=== PATIENT | female | born 1970 | race Hispanic/Latino ===

== ENCOUNTER 2020-09-04 11:48 | Inpatient (IN) | payer OTHER ==
[~2020-09-04 11:48] MED LIST: Dexamethasone 20 MG/5 ML VIAL ONE; Glycopyrrolate 0.2 MG/ML 5 ML SYRINGE ONE; Lidocaine 1% PF 5 ML VIAL ONE; Ondansetron PF 4 MG/2 ML Vial ONE; PHENYLEPHRINE-NS 100 MCG/ML 10 ML SYRINGE ONE; PROPOFOL 200 MG/20 ML VIAL ONE; Rocuronium Bromide 10 MG/ML (10ML VIAL) ONE; ePHEDrine 50 MG/ML VIAL ONE
[2020-09-04 12:41] LABS: #Eosinphils 0.2 thou/uL (0.0-0.7); #Lymphocytes 1.6 thou/uL (1.20-3.40); #Monocytes 0.8 thou/uL (0.11-0.59); #Neutrophils 4.4 thou/uL (1.40-6.50); %Basophils 0.2 % (0.0-1.0); %Eosinophils 2.3 % (0.0-10.0); %Lymphocytes 22.4 % (21.0-51.0); %Monocytes 12.1 % (0.0-10.0); %Neutrophils 62.9 % (42.0-75.0); Hemoglobin 9.5 g/dL (12.0-16.0); Mean Corpuscular HGB CONC 32.3 g/dL (32.0-36.0); Mean Corpuscular Hemoglobin 26.2 pg (27.0-31.0); Mean Corpuscular Volume 80.9 fL (78.0-98.0); Mean Platelet Volume 9.5 fL (7.4-10.4); Platelet Count 329 thou/uL (130-400); Red Blood Cell (RBC) Count 3.63 mill/uL (4.20-5.40)
[2020-09-04 13:06] LABS: ALT (SGPT) 103 U/L (8-55); AST (SGOT) 63 U/L (5-34); Alkaline Phosphatase 390 U/L (40-110); Anion Gap 11 mmol/L (10-20); BUN (Urea Nitrogen) 12 mg/dL (7.0-18.7); Calc. Creatinine Clearance 0 mL/min (70-130); Calcium 8.6 mg/dL (7.8-10.44); Carbon Dioxide 26 mmol/L (22-29); Chloride 103 mmol/L (98-107); Globulin 4.7 g/dL (2.4-3.5); Glucose 91 mg/dL (70-105); Lipase 372 U/L (8-78); Magnesium 1.8 mg/dL (1.6-2.6); Potassium 3.3 mmol/L (3.5-5.1); Protein, Total 7.7 g/dL (6.0-8.3); Sodium 137 mmol/L (136-145)
--- NOTE | 2020-09-04 13:22 | ULT ---
ULTRASOUND ABDOMEN LIMITED: (RIGHT UPPER QUADRANT) DATE: 09/04/2020 HISTORY: 50-year-old female with right upper quadrant abdominal pain and jaundice FINDINGS: Gallbladder: Several mobile gallstones. Gallbladder wall thickness up to 10 mm. Hypoechoic stripe wit hin wall consistent with edema. Common duct: 4 mm. Liver:Normal echogenicity Pancreas:Nonspecific sonographic appearance tail obscured. Right kidney:No hydronephrosis IMPRESSION: 1) positive for cholelithiasis. 2) gallbladder mural thickening with apparent mural edema: Suspicious for acute cholecystitis.
[2020-09-04 13:52] LABS: Bilirubin Negative (Negative); Blood, Urine Negative (Negative); Clarity Clear (Clear); Glucose, Urine (Dipstick) Normal (Negative); Ketone, Urine Negative (Negative); Leukocyte Negative Leu/uL (Negative); Nitrite Negative (Negative); Protein, Urine (Dipstick) Negative (Neg-Trace); Specific Gravity, Urine 1.013 (1.002-1.036)
[2020-09-04] MEDS ORDERED: Piperacillin/Tazobactam 3.375 GM VIAL ONE ×2 (14:39→22:30)
--- NOTE | 2020-09-04 15:19 | HP ---
HISTORY OF PRESENT ILLNESS: Ms. Shrestha is a 50-year-old woman. She is a G4, P4, an inmate of a correctional facility. The patient presented to the emergency department today reporting insidious onset postprandial abdominal pain since 08/17/2020. The pain started late afternoon following lunch consisting of fried chicken. The pain had worsened intermittently following eating and associated with occasional nausea. The patient subsequently developed jaundice and scleral icterus. Laboratory studies were performed on 08/31/2020, which was significant for elevated total bilirubin, AST, ALT, and alkaline phosphatase. The patient was referred to the emergency department today. Workup had included abdominal ultrasound, which was remarkable for intraluminal gallstones and gallbladder wall thickening. At the time of my evaluation, the patient reports 5/10 epigastric abdominal pain. The patient has been afraid of eating for a fear of exacerbating abdominal pain. Her last meal was yesterday. PAST MEDICAL HISTORY: Pertinent for essential hypertension, hypothyroidism, and chronic anemia. PAST SURGICAL HISTORY: Pertinent for laparoscopic tubal ligation. SOCIAL HISTORY: She is currently an inmate of a correctional facility. She denies any cigarette smoking, ethanol, or illicit drug abuse. FAMILY HISTORY: Notable for father with essential hypertension and diabetes mellitus. She denies any family history of heart disease or cancer. CURRENT MEDICATIONS: Includes antihypertensives, thyroid replacement therapy, and iron replacement therapy, recently started. She is unsure of specifics. ALLERGIES: TO SULFA DRUGS. REVIEW OF SYSTEMS: Ten-point review of systems is essentially unremarkable except as stated in past medical history and chief complaint. PHYSICAL EXAMINATION: GENERAL: This reveals a 50-year-old obese woman, who is otherwise coherent interactive and appears stated age. The patient is alert and oriented x3. She appears to be in no acute distress at the time of my evaluation. HEENT: Pupils are equal, round, and reactive to light and accommodation. She has mild bilateral scleral icterus present. HEART: Reveals regular rate and rhythm. No murmurs or gallops auscultated. LUNGS: Clear to auscultation bilaterally. Her breathing, regular and nonlabored. ABDOMEN: Soft with epigastric right upper quadrant tenderness to palpation. Liver and spleen are otherwise nonpalpable below costal margins. She clearly has no peritoneal signs on examination. NEUROLOGIC: Reveals no focal deficits present. LABORATORY FINDINGS: Today include a CBC with 7000 white blood cells, hemoglobin and hematocrit are 9.5 and 29.4 respectively. The platelet count is 329,000. Metabolic profile; sodium 137, potassium 3.3, chloride is 103, bicarb is 26, BUN 12, creatinine 0.86, glucose is 91, magnesium is 1.8, total bilirubin is 3.0, AST and ALT are 63 and 103 respectively. Alkaline phosphatase is 390. Serum lipase is also elevated at 372. Note that the LFTs are trending down when compared to the labs obtained on 08/31/2020. I have personally reviewed the abdominal ultrasound, which was obtained today, which reveals multiple intraluminal gallstones. There is gallbladder wall thickening and mild pericholecystic fluid in the distended gallbladder. Common bile duct is normal in diameter for this patient's age at 4 mm in diameter. IMPRESSIONS: 1. Acute cholecystitis with cholelithiasis. 2. Possible choledocholithiasis. 3. Mild gallstone pancreatitis, likely resolving given the patient's history. RECOMMENDATIONS AND PLAN: Laparoscopic cholecystectomy with intraoperative cholangiogram. I have discussed the above findings and recommendations with the patient in the presence of the guard as well as the patient's nurse at bedside. I have informed the patient of the risks and benefits of the proposed surgery to include, but not limited to, bleeding, infection, injury to bile duct or surrounding structures. I additionally informed the patient that should there be any filling defects on intraoperative cholangiogram, the patient will require ERCP with common bile duct stone extraction, which would be another procedure by Gastroenterology at that time. The patient has indicated understanding of information I provided her today. I have answered her questions. The patient has granted consent for this admission and surgical intervention. Job ID: [id number]
[2020-09-04 15:31] LABS: SARS-CoV-2 NAA Rapid Test Not Detected (NotDetected)
[2020-09-04] MEDS ORDERED: XYLOCAINE 2%-EPI 1:100,000 20 ML VIAL ONE (15:52)
[2020-09-04] MEDS ORDERED: Iothalamate Meglumine 60% 50 ML VIAL FS ONE (15:52)
[2020-09-04] MEDS ORDERED: Bupivacaine 0.25% HCL 30 ML VIAL ONE (15:52)
[2020-09-04] MEDS ORDERED: Fentanyl 100 MCG/2 ML VIAL ONE ×4 (15:59→20:31)
[2020-09-04] MEDS ORDERED: PHENYLEPHRINE-NS 100 MCG/ML 10 ML SYRINGE ONE (18:21)
--- NOTE | 2020-09-04 18:27 | RAD ---
EXAM: XR Cholangiogram in Surgery PROVIDED CLINICAL HISTORY: Cholelithiasis COMPARISON: None FINDINGS/IMPRESSION: 3 intraoperative fluoroscopic images from an intraoperative cholangiogram are submitted for interpret ation. The cystic duct is cannulated. There is a filling defect seen within the proximal common duct which could represent air bubble or possibly secondary to calculus within the common duct. There is evidence of free spill of contrast into the duodenum. Correlation with intraoperative findings is recommended. Fluoroscopy: Time-35 seconds Dose-1.93 Gy centimeter squared
[2020-09-04] MEDS ORDERED: Calcium Carbonate 500 MG ChewTAB PO PRN (19:41)
[2020-09-04] MEDS ORDERED: hydrALAZINE 20 MG/ML VIAL SLOW IVP PRN (19:41)
[2020-09-04] MEDS ORDERED: Dextrose 50% Abboject 50 ML SYRINGE SLOW IVP PRN (19:41)
[2020-09-04] MEDS ORDERED: Mag-Al 1200 mg/1200 mg/30 ML UDCUP PO PRN (19:41)
[2020-09-04] MEDS ORDERED: Dextrose 5% in Water 1,000 ML IV PRN (19:41)
[2020-09-04] MEDS ORDERED: Ondansetron PF 4 MG/2 ML Vial IVP PRN (19:41)
[2020-09-04] MEDS ORDERED: Promethazine HCl 25 MG/ML VIAL IM PRN ×2 (19:41→19:45)
[2020-09-04] MEDS ORDERED: Morphine 4 MG/ML VIAL SLOW IVP PRN (19:41)
[2020-09-04] MEDS ORDERED: traMADol HCl 50 MG TAB PO PRN ×2 (19:45)
[2020-09-04] MEDS ORDERED: HYDROmorphone 2 MG/ML VIAL SLOW IVP PRN (19:45)
[2020-09-04] MEDS ORDERED: Morphine Sulfate 2 MG/ML SYRINGE SLOW IVP PRN (19:45)
[2020-09-04] MEDS ORDERED: Promethazine HCl 25 MG/ML VIAL SLOW IVP PRN (19:45)
[2020-09-04] MEDS ORDERED: Ondansetron HCl/PF 4 MG/2 ML Vial IVP PRN (19:45)
--- NOTE | 2020-09-04 20:41 | CON ---
DATE OF CONSULTATION: 09/04/2020 CHIEF COMPLAINT: Abdominal pain. HISTORY OF PRESENT ILLNESS: Ms. Shrestha is a 50-year-old woman who had onset of epigastric sharp pain on 08/17/2020. The pain persisted over the next couple of weeks and actually over the last couple of days has improved somewhat. She had blood work drawn at the longterm that showed elevated bilirubin and liver tests and on review of those today she was sent over to the hospital for further care. She had nausea and vomiting on the day that her pain started, but this has not been persistent. She has had no diarrhea, constipation, or visible blood in the stool. She has lost maybe 10 pounds over the last couple of weeks. She has had no fever or chills. She has never had similar pain in the past. Her pain does not radiate. It remains localized in the upper epigastric region. PAST MEDICAL HISTORY: Hypertension, hypothyroidism, and anemia. PAST SURGICAL HISTORY: Tubal ligation. FAMILY HISTORY: Negative for GI malignancy. SOCIAL HISTORY: No alcohol, tobacco, or drugs. She is currently at the [facility] in [place]. ALLERGIES: SULFA. MEDICATIONS: Currently include; 1. Blood pressure medicine. 2. Thyroid medication. REVIEW OF SYSTEMS: Negative x10 systems reviewed except as stated in the History of Present Illness. PHYSICAL EXAMINATION: VITAL SIGNS: Blood pressure 151/87, pulse is 55. She is afebrile. GENERAL: She is in no acute distress. Alert and oriented x3. HEENT: Eyes have no scleral icterus. Oropharynx is clear without lesions. No cervical or supraclavicular lymphadenopathy. LUNGS: Clear to auscultation bilaterally. HEART: Regular rate and rhythm without murmur. ABDOMEN: Soft. No significant tenderness currently. Her bowel sounds are present. No hepatomegaly. EXTREMITIES: No lower extremity edema. Cranial nerves are grossly intact. LABORATORY DATA: White blood cell count 7.0, hemoglobin 9.5, MCV 80.9, platelets 329, creatinine 0.86, bilirubin 3.0 which is reportedly down from 5 at the longterm. AST 63, ALT 103, alkaline phosphatase 390, albumin 3.0, lipase is 372 with an upper limit of normal, at this lab it is 78. COVID screen is negative. IMPRESSION: 1. Cholecystitis with ultrasound showing gallbladder wall thickening and gallstones. 2. Gallstone pancreatitis. Her lipase is greater than 3 times upper limit of normal. Clinically, she is doing actually better over the last couple of days. 3. Abnormal liver function tests. She has primarily cholestatic pattern with mixed cholestatic and hepatocellular injury pattern to her LFTs. I suspect she likely still has a stone in her bile duct, but she might have passed the stone out. Given that her pain is greatly improved, her bilirubin is trending down, plan will be to proceed with surgery prior to ERCP. 4. Anemia. She is on the more microcytic end of normal. She has a history of anemia ever since she delivered her last baby 15 years ago. I will check iron studies. I have encouraged her to undergo EGD and colonoscopy in the future. This is not an emergent test but should be performed if she is confirmed to have iron deficiency. Still, I would favor menstrual blood loss is her likely etiology. RECOMMENDATIONS: 1. She has been evaluated by General surgery, Dr. Hernadez. She will undergo laparoscopic cholecystectomy with intraoperative cholangiogram. 2. If the intraoperative cholangiogram is positive, then I will follow with ERCP. 3. I would recommend follow up in GI Clinic for further assessment of her anemia. Job ID: [id number]
[2020-09-04 21:20] LABS: Iron 20 ug/dL (50-170); Iron Binding Capacity, Total 308 mcg/dL (265-497)
[2020-09-04 21:54] VITALS: BMI 38.9
[2020-09-04] MEDS: Enoxaparin Sodium 40 MG/0.4 ML SYRINGE SC SCH (22:15)
[2020-09-04] MEDS: Famotidine/PF 20 mg/2ml Vial SLOW IVP SCH (22:16)
[2020-09-04] MEDS: Famotidine 20 MG TAB PO SCH (22:16)
[2020-09-04] MEDS: Lactated Ringer's 1,000 ML IV SCH (22:16)
[2020-09-04] MEDS: Piperacillin/Tazobactam 3.375 GM in Sodium Chloride 0.9% 100 ML IVPB SCH (22:17)
[2020-09-04] MEDS: Ketorolac Tromethamine 30 MG/ML VIAL IVP SCH (22:20)
--- NOTE | 2020-09-04 23:54 | OP ---
DATE OF PROCEDURE: 09/04/2020 PREOPERATIVE DIAGNOSES: Acute cholecystitis, cholelithiasis, and choledocholithiasis. POSTOPERATIVE DIAGNOSES: Acute cholecystitis, cholelithiasis, and choledocholithiasis. PROCEDURE PERFORMED: Laparoscopic cholecystectomy with intraoperative cholangiogram. ANESTHESIA: General endotracheal. ESTIMATED BLOOD LOSS: 50 mL. FLUIDS GIVEN: 2000 mL crystalloids. TOTAL FLUOROSCOPY TIME: 35 seconds using 30 mL of Conray contrast. INDICATIONS FOR OPERATION: A 50-year-old morbidly obese woman, presented with recurrent epigastric right upper quadrant abdominal pain since 08/17/2020. Clinical and radiographic examination were consistent with acute cholecystitis with cholelithiasis and mildly elevated serum lipase. Diagnosis of acute cholecystitis, cholelithiasis with choledocholithiasis was made in addition to resolving acute gallstone pancreatitis. Abdominal pain was resolving, although the LFTs and serum lipase remained elevated. Decision was made to bring the patient to the operating room for laparoscopic cholecystectomy with intraoperative cholangiogram. Findings are consistent with markedly distended and thick-walled gallbladder in the usual anatomic location completely encased by omental adhesions. Cholangiogram also revealed multiple common bile duct filling defects. DESCRIPTION OF PROCEDURE: Informed consent was obtained from the patient who was brought to the operating room and placed in supine position. Following general anesthesia, abdomen was sterilely prepped and draped in usual fashion. Skin below the umbilicus was infiltrated with 0.25% Marcaine with epinephrine. A small curvilinear infraumbilical incision was made using 11 scalpel. Umbilical stalk was grasped with Shaunna and elevated. Veress needle was then inserted through the incision and placed in peritoneal cavity through which the abdomen was insufflated with 3 L of CO2 gas. Intraabdominal pressure noted at 3 mmHg. Following abdominal insufflation, Veress needle was removed and a 5 mm trocar introduced using a Visiport under laparoscopy. Laparoscopy confirmed proper placement of the port. No injuries to underlying structures. Additional laparoscopy reveals the right upper quadrant completely encased by omental adhesions. Under direct laparoscopy, a 10 mm epigastric and two 5 mm right lateral subcostal ports were placed after the overlying skin were infiltrated with 0.25% Marcaine with epinephrine, appropriate incision was made. The patient was placed in a reverse Trendelenburg position, rotated to her left. I introduced a [place] dissector through the epigastric port site using cautery to take down omental adhesions to reveal the fundus of the markedly distended gallbladder. I attempted to grasp the fundus of the gallbladder using a Prestige grasper through the right lateral subcostal port. It was markedly thick-walled and taut. Decision was made therefore to decompress the gallbladder. To achieve this, I used the Endo suction catheter with cautery to perform a cholecystotomy at the dome of the gallbladder, evacuating excess bile. Prestige grasper was then applied to the fundus, which was elevated cephalad. Omental adhesions were then bluntly taken down from remainder of the gallbladder. Bleeding points controlled using cautery. A second Prestige grasper introduced through the right medial subcostal port grasping the Brianan's pouch which was retracted laterally. I then used a [place] dissector to open the peritoneum of the gallbladder infundibulum and the cystic duct and artery were individually dissected free from surrounding structures tediously, but meticulously to avoid injuries to underlying structures. Critical view of the triangle was obtained. Cystic artery was divided between clips, applying 2 clips proximally and 1 clip at the junction of the cystic artery and gallbladder. I attempted to apply a clip at the junction of the cystic duct and gallbladder, this was difficult. The cystic duct was markedly thick walled and fibrotic. I then made a cystotomy in the cystic ductal lumen and I introduced a cholangiocatheter into the cystic ductal lumen and secured this with a clamp. A cholangiogram was performed revealing multiple common bile ductal filling defects. Following cholangiography, the clamp was removed and the catheter was removed from the peritoneal cavity. The duct was then divided between Endoloop. The gallbladder itself was removed from the liver bed using cautery with good hemostasis and delivered off the abdominal cavity using the EndoCatch. Note that to deliver the gallbladder off the abdominal cavity required slight extension of the epigastric port incision. The operative site was then irrigated with saline noting good hemostasis in place. #19 Rell drain introduced into the subhepatic space and allowed to exit the abdominal cavity through the right lateral subcostal port. The drain was secured to anterior abdominal wall using 2-0 silk suture. The fascia of the epigastric port was closed using 0 Vicryl suture and Endoclosure device under laparoscopy. The abdomen was desufflated. All ports and instruments removed and accounted for. Subcutaneous tissues of the epigastric port site were approximated using interrupted sutures of 2-0 Vicryl. Skin incisions were closed using 4-0 Monocryl suture in subcuticular fashion. The patient tolerated the operation without any apparent complication and was returned to recovery in satisfactory condition. She will be referred to Gastroenterology for ERCP. Job ID: [id number]
[2020-09-05] MEDS: Piperacillin/Tazobactam 3.375 GM in Sodium Chloride 0.9% 100 ML IVPB SCH ×4 (03:28→20:53)
[2020-09-05 05:15] LABS: #Lymphocytes 0.8 thou/uL (1.20-3.40); #Monocytes 0.7 thou/uL (0.11-0.59); #Neutrophils 11.4 thou/uL (1.40-6.50); %Basophils 0.1 % (0.0-1.0); %Eosinophils 0.1 % (0.0-10.0); %Lymphocytes 5.9 % (21.0-51.0); %Neutrophils 88.9 % (42.0-75.0); Hemoglobin 8.5 g/dL (12.0-16.0); Mean Corpuscular HGB CONC 32.3 g/dL (32.0-36.0); Mean Corpuscular Hemoglobin 26.2 pg (27.0-31.0); Mean Corpuscular Volume 81.1 fL (78.0-98.0); Mean Platelet Volume 8.9 fL (7.4-10.4); Platelet Count 315 thou/uL (130-400); Red Blood Cell (RBC) Count 3.23 mill/uL (4.20-5.40); White Blood Cell (WBC) Count 12.9 thou/uL (4.8-10.8)
[2020-09-05 05:38] LABS: ALT (SGPT) 93 U/L (8-55); AST (SGOT) 96 U/L (5-34); Albumin 2.6 g/dL (3.5-5.0); Alkaline Phosphatase 310 U/L (40-110); Anion Gap 11 mmol/L (10-20); BUN (Urea Nitrogen) 15 mg/dL (7.0-18.7); Bilirubin, Total 2.5 mg/dL (0.2-1.2); Calc. Creatinine Clearance 105 mL/min (70-130); Calcium 8.2 mg/dL (7.8-10.44); Carbon Dioxide 26 mmol/L (22-29); Chloride 106 mmol/L (98-107); Globulin 4.1 g/dL (2.4-3.5); Glucose 151 mg/dL (70-105); Lipase 73 U/L (8-78); Potassium 3.6 mmol/L (3.5-5.1); Protein, Total 6.7 g/dL (6.0-8.3); Sodium 139 mmol/L (136-145)
[2020-09-05] MEDS: Ketorolac Tromethamine 30 MG/ML VIAL IVP SCH ×2 (05:58→13:47)
[2020-09-05] MEDS: Lactated Ringer's 1,000 ML IV SCH (05:59)
[2020-09-05] MEDS ORDERED: Piperacillin/Tazobactam 3.375 GM VIAL ONE (07:48)
[2020-09-05] MEDS ORDERED: Sodium Chloride 0.9% 100 ML ONE (07:50)
[2020-09-05] MEDS ORDERED: Iothalamate Meglumine 60% 50 ML VIAL FS ONE (07:52)
[2020-09-05] MEDS ORDERED: Indomethacin 50 MG SUPP ONE (07:59)
[2020-09-05] MEDS ORDERED: FLU VACC QS2020-21(6MOS UP)/PF 60 MCG/0.5 ML SYRINGE IM ONE (09:00)
[2020-09-05] MEDS ORDERED: Dexamethasone 20 MG/5 ML VIAL ONE (10:31)
[2020-09-05] MEDS ORDERED: PROPOFOL 200 MG/20 ML VIAL ONE (10:31)
[2020-09-05] MEDS ORDERED: PHENYLEPHRINE-NS 100 MCG/ML 10 ML SYRINGE ONE (10:31)
[2020-09-05] MEDS ORDERED: Lidocaine 1% PF 5 ML VIAL ONE (10:31)
[2020-09-05] MEDS ORDERED: Succinylcholine 200 MG/10 ml SYRINGE FS ONE (10:31)
[2020-09-05] MEDS ORDERED: Rocuronium Bromide 10 MG/ML (10ML VIAL) ONE (10:31)
[2020-09-05] MEDS ORDERED: Ondansetron PF 4 MG/2 ML Vial ONE (10:31)
--- NOTE | 2020-09-05 11:30 | OP ---
DATE OF PROCEDURE: 09/05/2020 PROCEDURE PERFORMED: Endoscopic retrograde cholangiopancreatography. PREOPERATIVE DIAGNOSIS: Choledocholithiasis with abnormal intraoperative cholangiogram. DESCRIPTION OF PROCEDURE: Informed consent was obtained from the patient. She was sedated with general anesthesia and placed in the prone position. The duodenoscope was advanced easily to the second portion of the duodenum, where the ampulla was identified and appeared unremarkable. The common bile duct was selectively cannulated easily on 1st attempt with a wire. Cholangiogram was performed, which revealed normal intrahepatic ducts. The common bile duct was dilated to 11 to 13 mm. It was slightly more dilated distally. There was no obvious filling defect on initial cholangiogram. A complete sphincterotomy was performed with good flow of bile and contrast. The 15 mm balloon was used to sweep throughout the entire duct and passes through the sphincterotomy site without significant resistance. There was no stone in the duct at that point. This duct was swept a few additional times to verify that it was clear. The distal duct appeared hazier on followup images and also with possible collection of contrast in the gallbladder fossa. This could indicate a bile leak. However, this was not high grade. There was a large sphincterotomy, through which a 15 mm balloon passed easily and this was wide open without edema, and stent is not required. The air and fluid were suctioned from the stomach, and the procedure was completed. IMPRESSION: 1. Common bile duct cannulated easily on 1st attempt with a wire. 2. Cholangiogram shows no obvious filling defects. The intrahepatic ducts were normal, and the common duct was dilated from 11 to 13 mm. 3. A complete sphincterotomy was performed with good drainage of contrast and bile. 4. The bile duct was swept with a 15 mm balloon, which passes through the sphincterotomy without significant resistance. The bile duct was confirmed to be clear. There was good flow of contrast and bile from the sphincterotomy site. 5. There is a question of haziness of contrast collection behind the distal duct on subsequent imaging and possibly in the gallbladder fossa, which could indicate some low-grade bile leak. This is adequately treated with sphincterotomy. RECOMMENDATIONS: 1. CT scan of the abdomen and pelvis to rule out any free air or significant bile leak. 2. If the CT is clear, then she can advance her diet and likely discharge home later today or tomorrow. Job ID: [id number]
--- NOTE | 2020-09-05 12:17 | CT ---
CT ABDOMEN NONCONTRAST CT PELVIS NONCONTRAST: (Urolithiasis protocol) DATE: 09/05/2020 HISTORY: 50-year-old female status post laparoscopic cholecystectomy yesterday. Status post ERCP today. Concer n for bile leak. "Rule out free air". Discussed findings in person with Dr. Vizcarra at time of dictation. COMPARISON: None TECHNIQUE: IV injection of iodinated contrast media: None Oral contrast media: None FINDINGS: Other than for urolithiasis, the lack of IV and oral contrast limits the evaluation. There is gas within intrahepatic bile ducts, left lobe more than right. Surgical drainage catheter is looped in the region of the gallbladder fossa and hepatic hilum, with d istal tip at the junction between the inferior edge of right lobe of liver and portion of hepatic flexure-right transverse colon. The catheter enters the peritoneal cavity from right lower quadrant. There is a moderate amount of intraperitoneal air collection at the right lower lateral abdomen adjac ent to the entry site of the drainage catheter. There is a small amount of free intraperitoneal air in the right upper quadrant abutting the left lob e of liver. The moderate volume of free intraperitoneal air along the ventral, nondependent aspect of the lower a bdomen and pelvis. There is a tract from laparoscopic entry to the right of midline in the lower abdominal wall and subc utaneous fat There is a moderate amount of subcutaneous emphysema in the subcutaneous fat lateral to the right abd ominal wall, and some gas in right lateral wall muscle. There is mural thickening and mural edema, and surrounding pericolonic fat stranding around the hepat ic flexure of the colon and adjacent portions of mesentery. Reportedly, the gallbladder had inflammatory adhesions to surrounding structures, and the CT findings may represent that inflammatory process. There is no free intraperitoneal air immediately surrounding the hepatic flexure of the colon. There is enteric contrast material within nondilated stomach, nondilated small bowel loops, and in th e cecum and ascending colon. No extraluminal extravasated enteric contrast material is visualized. No renal, ureteral, or bladder calculus. Parenchymal defects at the left renal upper, mid, and lower poles. No hydronephrosis. Within the limitations of a noncontrast scan, no abnormality identified involving abdominal aorta, ri ght kidney, pancreas, adrenals, spleen, or urinary bladder. No ascites. Dependent pulmonary opacities at bases of bilateral lower lobes, probably dependent atelectasis. No p leural effusion. Bilateral Essure fallopian tube closure devices. IMPRESSION: 1) enteric contrast material in the lumen of stomach, small intestine, and ascending colon, presumabl y a combination from that injected during the intraoperative cholangiogram yesterday and the ERCP today (patient received no oral contrast). 2) no extravasation of oral contrast to indicate bile leak (if there is continued clinical concern fo r bile leak, nuclear medicine hepatobiliary scan is available). 3) prominent inflammatory changes involving the hepatic flexure of the colon. 4) pneumoperitoneum distributed as described above. At least some of this, and perhaps all, it can be explained by the recent laparotomy.
[2020-09-05] MEDS: Famotidine 20 MG TAB PO SCH ×2 (13:45→20:53)
[2020-09-05] MEDS: Famotidine/PF 20 mg/2ml Vial SLOW IVP SCH ×2 (13:45→21:01)
[2020-09-05] MEDS: Ibuprofen 600 MG TAB PO SCH ×2 (13:48→20:52)
[2020-09-05] MEDS: Acetaminophen 500 MG TAB PO SCH ×2 (13:49→17:47)
--- NOTE | 2020-09-05 14:10 | PRG ---
DATE OF SERVICE: 09/05/2020 SUBJECTIVE: CT scan of the abdomen and pelvis without contrast was performed following the ERCP. This was performed in light of hazy contrast collection that was behind the distal common bile duct on the ERCP images. This by CT appears to have no extraluminal contrast collection. This may have been accumulation from contrast that passed from her duct or previous contrast given. Her duct itself remains clear and she is asymptomatic and there are no signs of complication at this point. She has expected air from her surgery, but no significant increased abnormal air to suggest perforation with sphincterotomy. RECOMMENDATIONS: We will advance her diet and likely discharge home tomorrow morning. Job ID: [id number]
[2020-09-05] MEDS: Enoxaparin Sodium 40 MG/0.4 ML SYRINGE SC SCH (20:53)
[2020-09-05] MEDS ORDERED: Doxepin HCl 10 MG CAP PO PRN (22:03)
--- NOTE | 2020-09-05 22:37 | PRG ---
DATE OF SERVICE: 09/05/2020 SUBJECTIVE: The patient is currently hospital day #2, postop day #1 from laparoscopic cholecystectomy with intraoperative cholangiogram, who today underwent ERCP. She tolerated that procedure well. Postoperatively, she stated that her pain continued to improve. She was tolerating a clear liquid diet. We have been able to advance her diet and throughout the evening, she reports no problems. Per Dr. Vizcarra's note, she also agrees with the advancing of her diet and also likely to be discharged home tomorrow. PHYSICAL EXAMINATION: VITAL SIGNS: Temperature is 97.7, heart rate 56, blood pressure 128/79, respirations 16, and oxygen saturation 95% on room air. GENERAL: The patient is resting comfortably in bed. She is awake, alert, conversant, appropriate. HEENT: Unremarkable. RESPIRATIONS: Nonlabored. ABDOMEN: Nondistended with no peritoneal signs with active bowel sounds. EXTREMITIES: Neurovascularly intact. LABORATORY FINDINGS: WBC 12.9, hemoglobin 8.5, hematocrit 26.2, platelets 315. Sodium 139, potassium 3.6, chloride 106, CO2 of 26, BUN 15, creatinine 1.03, glucose 151, total bilirubin 2.5, AST 96, ALT 93, alkaline phosphatase 310, lipase 73. RADIOGRAPHIC FINDINGS: There is no extravasation of oral contrast to indicate bile leak. A small amount of pneumoperitoneum that may be explained by recent laparotomy. ASSESSMENT: 1. Status post laparoscopic cholecystectomy, postop day #1. 2. Status post ERCP today. PLAN: Plan will be to repeat labs in the morning. Advance diet. Encourage out of bed and likely discharge home tomorrow. The patient was discussed with Dr. Hernadez this morning during rounds. Job ID: [id number]
[2020-09-06] MEDS: Acetaminophen 500 MG TAB PO SCH ×3 (00:06→13:28)
[2020-09-06] MEDS: Piperacillin/Tazobactam 3.375 GM in Sodium Chloride 0.9% 100 ML IVPB SCH ×2 (03:55→10:41)
[2020-09-06] MEDS: Ibuprofen 600 MG TAB PO SCH ×2 (05:28→13:28)
[2020-09-06] MEDS ORDERED: Levothyroxine Sodium 125 MCG TAB PO SCH (06:00)
[2020-09-06] MEDS ORDERED: Aspirin 81 mg Enteric Coated Tablet PO SCH (09:00)
[2020-09-06] MEDS ORDERED: Saccharomyces boulardii 250 MG CAP PO SCH (09:00)
[2020-09-06] MEDS ORDERED: Losartan 25 MG TAB PO SCH (09:00)
[2020-09-06] MEDS ORDERED: Amlodipine 10 MG TAB PO SCH (09:00)
[2020-09-06] MEDS: Famotidine 20 MG TAB PO SCH (09:27)
[2020-09-06] MEDS: Famotidine/PF 20 mg/2ml Vial SLOW IVP SCH (09:43)
[2020-09-06 11:20] LABS: ALT (SGPT) 56 U/L (8-55); AST (SGOT) 47 U/L (5-34); Albumin 2.6 g/dL (3.5-5.0); Alkaline Phosphatase 234 U/L (40-110); Anion Gap 12 mmol/L (10-20); BUN (Urea Nitrogen) 20 mg/dL (7.0-18.7); Bilirubin, Direct 1.7 mg/dL (0.1-0.3); Bilirubin, Total 2.1 mg/dL (0.2-1.2); Calc. Creatinine Clearance 99 mL/min (70-130); Carbon Dioxide 24 mmol/L (22-29); Chloride 109 mmol/L (98-107); Glucose 97 mg/dL (70-105); Magnesium 1.8 mg/dL (1.6-2.6); Phosphorus 2.8 mg/dL (2.3-4.7); Potassium 3.6 mmol/L (3.5-5.1); Protein, Total 6.7 g/dL (6.0-8.3); Sodium 141 mmol/L (136-145)
[2020-09-06 12:25] VITALS: BP 116/77; TEMP 98.2
--- NOTE | 2020-09-06 13:54 | DIS ---
DATE OF ADMISSION: 09/04/2020 DATE OF DISCHARGE: 09/06/2020 DISCHARGING PHYSICIAN: Dr. Hernadez. ADMIT DIAGNOSES: 1. Acute cholecystitis, cholelithiasis. 2. Choledocholithiasis. DISCHARGE DIAGNOSES: 1. Acute cholecystitis, cholelithiasis. 2. Choledocholithiasis. OPERATIONS PERFORMED: 1. Laparoscopic cholecystectomy with intraoperative cholangiogram on 09/04/2020. 2. ERCP with sphincterotomy on 09/05/[address] Vizcarra. Please see separate dictations for those procedure notes. HISTORY AND HOSPITAL COURSE: A 50-year-old, morbidly obese woman, an inmate of a correctional facility. The patient was admitted on 09/04/2020, with recurrent epigastric to right upper quadrant abdominal pain. Clinical and radiographic examination were consistent with acute cholecystitis with cholelithiasis and choledocholithiasis. She also had gallstone pancreatitis, which apparently was resolving. The patient was taken to the operating room for laparoscopic cholecystectomy with intraoperative cholangiogram followed by ERCP with sphincterotomy on postoperative day #1. The patient has had an unremarkable course. Today, she is evaluated and is postoperative day 2. She reports adequate pain control on oral analgesics. She is tolerating general diet, having normal bowel and urinary function. Abdominal examination reveals intact incisional wounds. Mikhail-Sánchez drain returns scant amount of nonbilious serosanguineous output. Mikhail-Sánchez drain was removed without incident. She has remained hemodynamically stable and afebrile through this hospitalization. Repeat LFTs today includes a total bilirubin which is 2.1, it was as high as 3.0 on admission. AST and ALT are also resolving at 47 and 56 respectively, compared to 63 and 103 on admission. Serum lipase today is 106, it was as high as 372 on admission. DISCHARGE INSTRUCTIONS: The patient has maximum hospital benefit and will be discharged today with the following instructions. 1. She is to ambulate ad jennifer to avoid complications of venous thromboembolism. 2. She is to avoid weight lifting in excess of 20 pounds for 2 weeks. She may resume work within the next 1 week so long as her pain is controlled and her job does not involve weight lifting in excess of 20 pounds. 3. She is to shower, but avoid soaking herself in a bathtub or swimming for additional 2 weeks. She may take acetaminophen 1000 mg p.o. q.6 hours p.r.n. pain, alternating this with ibuprofen 600 mg p.o. q.8 hours p.r.n. pain. 4. Additionally, she may take tramadol 50 mg one to two p.o. q.6 hours p.r.n. breakthrough pain. 5. She is to resume all pre-hospitalization medications as prescribed by her primary care physician. Above instructions were given to the patient in the presence of her nurse and guard. The patient indicated understanding of information provided. I have answered her questions. The patient has expressed gratitude for the care rendered to her during this hospitalization and surgery. ADDENDUM: The patient is to follow up with me in the Surgery Clinic in 2 weeks, will repeat LFTs. Job ID: [id number]
--- NOTE | 2020-09-06 14:03 | PDOC.DS.DS ---
Provider Date of Admission: 09/04/20 15:51 Date of Discharge: 09/06/20 Admitting Provider: Alek Hernadez DO Primary Care Physician: NO PCP PROVIDER Course Lab Results: 09/05/20 05:03 09/06/20 10:33 Abnormal Lab Results - Last 48 hrs 09/04/20 20:53: Iron 20 L 09/05/20 05:03: Total Bilirubin 2.5 H, AST 96 H, ALT 93 H, Alkaline Phosphatase 310 H, Albumin 2.6 L, Globulin 4.1 H, Albumin/Globulin Ratio 0.6 L 09/05/20 05:03: WBC 12.9 H, RBC 3.23 L, Hgb 8.5 L, Hct 26.2 L, MCH 26.2 L, RDW 19.0 H, Neutrophils % 88.9 H, Lymphocytes % 5.9 L, Neutrophils # 11.4 H, Lymphocytes # 0.8 L, Monocytes # 0.7 H 09/06/20 10:33: Chloride 109 H, BUN 20 H, Total Bilirubin 2.1 H, Direct Bilirubin 1.7 H, AST 47 H, ALT 56 H, Alkaline Phosphatase 234 H, Albumin 2.6 L 09/06/20 10:33: Lipase 106 H Vitals: Vital Signs (12 hours) Temp Pulse Resp BP Pulse Ox 09/06/20 12:45 97 09/06/20 12:21 98.2 F 61 16 116/77 97 09/06/20 09:27 51 L 09/06/20 07:31 98.0 F 51 L 16 127/80 97 09/06/20 05:30 98.1 F 54 L 16 124/60 95 Weight Weight 220 lb Physical Exam: The patient was seen and examined on the day of discharge. Plan Home Medications: Medication Instructions Recorded Confirmed Type Amlodipine [Norvasc] 10 mg PO DAILY 09/05/20 09/05/20 History Aspirin [Ecotrin] 81 mg PO DAILY 09/05/20 09/05/20 History Docusate Sodium [Stool Softener] 100 mg PO DAILY PRN 09/05/20 09/05/20 History Doxepin HCl [Sinequan] 10 mg PO HS PRN 09/05/20 09/05/20 History Ferrous Gluconate 324 mg PO DAILY 09/05/20 09/05/20 History Levothyroxine Sodium 125 mcg PO DAILY 09/05/20 09/05/20 History [Levothyroxine] Losartan Potassium 100 mg PO DAILY 09/05/20 09/05/20 History Allergies: Sulfa (Sulfonamide Antibiotics) Allergy (Verified 09/05/20 00:16) Discharge Instructions:: Please allow bottom floor and bottom bunk x 2 weeks. RTW 09/11/20 Monitor blood pressure and heart rate closely. Blood pressure medications may need to be changed or held if hypotension/bradycardia occurs. Ok to shower. Do not soak incisions. Patient needs water resistant bandage for JENNIFER site on right lower abdomen. Signs of infection include redness, drainage, swelling and fever >100.4. Activity:: Activity Restrictions (Limit lifting anything heavier then 10 pounds ) Nourishment:: Regular Diet Therapies:: Not Applicable Equipment/Supplies:: Not Applicable IV Therapy:: Not Applicable Referrals: PROVIDER,NO PCP [Primary Care Provider] - Alek Hernadez DO [Family Provider] - Disposition: RETIREMENT
--- NOTE | 2020-09-07 13:13 | RAD ---
ERCP: HISTORY: Stone extraction. FINDINGS: This is a series of 13 images. Contrast is injected into a slightly dilated common bile duct. The c atheter shows a balloon in lace. This appears to be withdrawn on the images. It is difficult to def initely identify a stone. The final image shows the balloon within the more proximal aspect of the c ommon duct. IMPRESSION: ERCP related to stone extraction. Common bile duct is mildly dilated. It is difficult to see on the final films whether any residual stone is present. POS: ANGEL
== END 2020-09-06 14:37 | DRG 417 ==
LOC: ERS 11:48 → SDC 15:50 → SURG B 15:51
PROVIDERS: ADMIT Surgery; ATTEND Surgery
PROC: 0FT44ZZ Resection of Gallbladder, Percutaneous Endoscopic Approach (ICD-10-PCS; principal; 2020-09-04)
PROC: BF131ZZ Fluoroscopy of Gallbladder and Bile Ducts using Low Osmolar Contrast (ICD-10-PCS; 2020-09-04)
PROC: 0F798ZZ Dilation of Common Bile Duct, Via Natural or Artificial Opening Endoscopic (ICD-10-PCS; 2020-09-05)
DX: K80.62 Calculus of gallbladder and bile duct with acute cholecystitis without obstruction (principal); K85.10 Biliary acute pancreatitis without necrosis or infection; I10 Essential (primary) hypertension; D64.9 Anemia, unspecified; E66.01 Morbid (severe) obesity due to excess calories; Z20.822 Contact with and (suspected) exposure to COVID-19; E03.9 Hypothyroidism, unspecified; Z98.51 Tubal ligation status; Z88.2 Allergy status to sulfonamides; Z68.39 Body mass index [BMI] 39.0-39.9, adult
CPT/HCPCS: 36415; 47532; 74176; 74330; 76705; 80048; 80053; 80076; 81003; 82140; 82728; 83540; 83550; 83690; 83735; 84100; 85025; 88304; 96365; J1100; J1650; J1885; J2405; J2543; J2704; J3010; J3490; S0020; S0028; U0002